=== PATIENT | male | born 1940 | race Caucasian/White ===

== ENCOUNTER 2018-07-10 18:04 | Inpatient (IN) | payer OTHER, MEDICARE ==
[2018-07-10] MEDS: SOD CHLORIDE 0.9% 500 ML IV (18:41)
[2018-07-10 18:43] LABS: ADD MAN DIFF? NO
[2018-07-10 18:44] LABS: ABNORMAL IP MESSAGE 1; BASOPHIL # 0.1 10^3/ul (0.0-0.1); BASOPHILS % 1.1 % (0.0-2.0); HEMATOCRIT 34.9 % (42.0-52.0); LYMPHOCYTES # 0.6 10^3/ul (0.8-2.9); LYMPHOCYTES % 12.8 % (15.0-51.0); MEAN CORPUSCULAR HEMOGLOBIN 35.7 pg (29.0-33.0); MEAN CORPUSCULAR HGB CONC 31.5 g/dl (32.0-37.0); MEAN CORPUSCULAR VOLUME 113.3 fl (82.0-101.0); MEAN PLATELET VOLUME 10.8 fl (7.4-10.4); MONOCYTE # 0.1 10^3/ul (0.3-0.9); MONOCYTES % 2.6 % (0.0-11.0); NEUTROPHIL # 3.9 10^3/ul (1.6-7.5); NEUTROPHILS % 82.6 % (39.0-77.0); PLATELET COUNT 131 10^3/UL (140-415); POSITIVE DIFF @See below; RED BLOOD COUNT 3.08 10^6/ul (4.70-6.10); RED CELL DISTRIBUTION WIDTH 15.5 % (11.5-14.5)
[2018-07-10 18:44] LABS: WHITE BLOOD COUNT 4.7 10^3/ul (4.8-10.8)
[2018-07-10 19:03] LABS: INR 1.75; PROTIME 20.8 Sec (11.9-14.9); PT RATIO 1.6
[2018-07-10 19:04] LABS: PARTIAL THROMBOPLASTIN TIME 39.4 Sec (23.0-35.0)
[2018-07-10 19:08] LABS: ALANINE AMINOTRANSFERASE 12 IU/L (13-69); ALBUMIN 2.5 g/dl (3.3-4.9); ALBUMIN/GLOBULIN RATIO 0.59; ALKALINE PHOSPHATASE 47 IU/L (42-121); ANION GAP 17 (5-13); ASPARTATE AMINO TRANSFERASE 62 IU/L (15-46); BILIRUBIN,INDIRECT 1.8 mg/dl (0-1.1); BILIRUBIN,TOTAL 2.2 mg/dl (0.2-1.3); BLOOD UREA NITROGEN 40 mg/dl (7-20); CALCIUM 8.4 mg/dl (8.4-10.2); CARBON DIOXIDE 17 mmol/L (21-31); CHLORIDE 108 mmol/L (97-110); CREATININE 4.95 mg/dl (0.61-1.24); LIPASE 40 U/L (23-300); POTASSIUM 5.5 mmol/L (3.5-5.1); SODIUM 142 mmol/L (135-144); TOTAL PROTEIN 6.7 g/dl (6.1-8.1)
[2018-07-10 19:34] LABS: GLUCOSE < 20 mg/dl (70-220)
[2018-07-10] MEDS: DEXTROSE 50% 50 ML SYRINGE IV ×2 (19:44→21:21)
[2018-07-10] MEDS: SODIUM CHLORIDE 0.9% 1L BAG IV* (19:45)
[2018-07-10] MEDS: CEFEPIME 2GM/50 ML (PMX) 50 ML IVPB (19:51)
[2018-07-10] MEDS: ALBUMIN HUMAN 25% 100 ML IV ×2 (19:52→20:49)
[2018-07-10 20:25] LABS: ANISOCYTOSIS 3+ (0-0); BAND NEUTROPHILS #M 2.1 10^3/ul (0.0-0.6); BAND NEUTROPHILS % (M) 46 % (0-4); BASOPHILS % (M) 1 % (0-2); EOSINOPHILS % (M) 1 % (0-7); GIANT THROMBO% (M) 4 % (0-0); LYMPHOCYTES #M 0.9 10^3/ul (0.8-2.9); LYMPHOCYTES % (M) 20 % (15-51); METAMYELOCYTES #M 0.5 10^3/ul (0.0-0.0); METAMYELOCYTES %M 12 % (0-0); MONOCYTE #M 0.1 10^3/ul (0.3-0.9); MONOCYTES % (M) 4 % (0-11); PLATELET ESTIMATE DECREASED; POIKILOCYTOSIS 3+ (0-0); SEG NEUT #M 0.9 10^3/ul (1.6-7.5); SEGMENTED NEUTROPHILS (M) % 17 % (39-77); SMUDGE%M 12 % (0-0)
[2018-07-10 20:38] LABS: AADO2 Arterial 56.3 mmHg (7.0-24.0); Allen Test ACCEPTAB; Arterial Base Excess -10.9 mmol/L (-3.0-3); Arterial Blood Gas Oxygen Sat 89.3 mmHG (95.0-100.0); Arterial COHb 0.2 % (0.0-3.0); Arterial Fraction of Oxyhgb 88.6 % (93.0-99.0); Arterial HCO3 13.5 mmol/L (22.0-26.0); Arterial MetHb 0.6 % (0.0-1.5); Arterial pCO2 26.2 mmhg (35-45); MODE ROOM AIR; Site Right Radial
[2018-07-10] MEDS ORDERED: LIDOCAINE 2%/EPI (MDV) 20ML INJ (21:23)
[2018-07-10] MEDS: LIDOCAINE 1%/EPI (MDV) 50 ML INJ SC (21:55)
[2018-07-10] MEDS: DEXTROSE 10% 1,000 ML IV (22:08)
[2018-07-10 22:44] LABS: FLD MN% 14.4 %; FLD PMN% 85.6 %; FLD RBC 4000 /uL
[2018-07-10] MEDS: SOD CHLORIDE 0.9% 250 ML IV (22:44)
[2018-07-10 23:23] LABS: FLD CLARITY CLOUDY; FLD COLOR YELLOW; FLD WBC 10436 /cmm
[2018-07-10 23:23] LABS: FLD TYPE ASCITES
[2018-07-10] MEDS: SOD CHLORIDE 0.9% 1,000 ML IV (23:29)
[2018-07-10] MEDS ORDERED: ALBUTEROL/IPRATROPIUM (NEB) 3 ML AMP NEB (23:30)
[2018-07-10] MEDS ORDERED: DEXTROSE 50% 50 ML SYRINGE IV (23:30)
[2018-07-10] MEDS ORDERED: ACETAMINOPHEN 650 MG SUPP PR (23:30)
[2018-07-11 00:15] LABS: LACTIC ACID 9.5 mmol/L (0.5-2.0)
[2018-07-11] MEDS: ALBUMIN HUMAN 25% 100 ML IV ×5 (01:00→16:59)
[2018-07-11 01:50] LABS: FLUID GLUCOSE < 20 mg/dl; FLUID TYPE ASCITES FLUID
[2018-07-11 01:51] LABS: FLUID TOTAL PROTEIN < 2.0 g/dl
[2018-07-11] MEDS: NORepinephrine 8MG/250 ML (PMX 250 ML IV ×3 (02:02→19:10)
[2018-07-11] MEDS: DEXTROSE 50% 50 ML SYRINGE IV (02:19)
[2018-07-11 08:47] LABS: ADD MAN DIFF? NO
[2018-07-11 08:51] LABS: ABNORMAL IP MESSAGE 1; BASOPHIL # 0.1 10^3/ul (0.0-0.1); BASOPHILS % 0.8 % (0.0-2.0); EOSINOPHILS % 0.5 % (0.0-7.0); HEMATOCRIT 29.9 % (42.0-52.0); HEMOGLOBIN 9.7 g/dl (14.0-18.0); LYMPHOCYTES # 0.5 10^3/ul (0.8-2.9); MEAN CORPUSCULAR HEMOGLOBIN 35.8 pg (29.0-33.0); MEAN CORPUSCULAR HGB CONC 32.4 g/dl (32.0-37.0); MEAN CORPUSCULAR VOLUME 110.3 fl (82.0-101.0); MEAN PLATELET VOLUME 10.7 fl (7.4-10.4); MONOCYTE # 0.3 10^3/ul (0.3-0.9); MONOCYTES % 4.4 % (0.0-11.0); NEUTROPHIL # 5.3 10^3/ul (1.6-7.5); NEUTROPHILS % 83.5 % (39.0-77.0); PLATELET COUNT 113 10^3/UL (140-415); POSITIVE DIFF @See below; RED BLOOD COUNT 2.71 10^6/ul (4.70-6.10); RED CELL DISTRIBUTION WIDTH 15.1 % (11.5-14.5)
[2018-07-11 08:51] LABS: WHITE BLOOD COUNT 6.4 10^3/ul (4.8-10.8)
[2018-07-11 09:18] LABS: ALANINE AMINOTRANSFERASE 16 IU/L (13-69); ALBUMIN 2.3 g/dl (3.3-4.9); ALBUMIN/GLOBULIN RATIO 0.67; ALKALINE PHOSPHATASE 29 IU/L (42-121); ANION GAP 13 (5-13); ASPARTATE AMINO TRANSFERASE 53 IU/L (15-46); BILIRUBIN,INDIRECT 2.1 mg/dl (0-1.1); BILIRUBIN,TOTAL 2.5 mg/dl (0.2-1.3); BLOOD UREA NITROGEN 41 mg/dl (7-20); CALCIUM 7.9 mg/dl (8.4-10.2); CARBON DIOXIDE 17 mmol/L (21-31); CHLORIDE 110 mmol/L (97-110); CREATININE 4.65 mg/dl (0.61-1.24); GLUCOSE 93 mg/dl (70-220); SODIUM 140 mmol/L (135-144); TOTAL PROTEIN 5.7 g/dl (6.1-8.1)
[2018-07-11 09:21] LABS: POTASSIUM 5.6 mmol/L (3.5-5.1)
[2018-07-11 09:47] LABS: LACTIC ACID 7.3 mmol/L (0.5-2.0)
[2018-07-11] MEDS: FAMOTIDINE 20 MG INJ IV (10:25)
[2018-07-11 11:51] LABS: ANISOCYTOSIS 1+ (0-0); BAND NEUTROPHILS #M 3.3 10^3/ul (0.0-0.6); BAND NEUTROPHILS % (M) 53 % (0-4); BURR CELLS 2+ (0-0); LYMPHOCYTES #M 0.4 10^3/ul (0.8-2.9); LYMPHOCYTES % (M) 7 % (15-51); METAMYELOCYTES #M 0.5 10^3/ul (0.0-0.0); METAMYELOCYTES %M 9 % (0-0); MONOCYTE #M 0.7 10^3/ul (0.3-0.9); MONOCYTES % (M) 11 % (0-11); MYELOCYTES #M 0.1 10^3/ul (0.0-0.0); MYELOCYTES % (M) 3 % (0-0); OVALOCYTES 1+ (0-0); PLATELET ESTIMATE DECREASED; POIKILOCYTOSIS 3+ (0-0); SEG NEUT #M 1.3 10^3/ul (1.6-7.5); SEGMENTED NEUTROPHILS (M) % 17 % (39-77); SMUDGE%M 2 % (0-0)
[2018-07-11] MEDS: CEFTRIAXONE 1 GM/50 ML (PMX) 50 ML IVPB ×2 (12:45→20:37)
[2018-07-11] MEDS: DEXTROSE 10% 1,000 ML IV ×2 (14:00→22:26)
[2018-07-11] MEDS ORDERED: ALBUTEROL 0.083% (NEB) 2.5 MG/3 ML AMP HHN (19:00)
[2018-07-11] MEDS: SOD CHLORIDE 0.9% 500 ML IV (19:31)
[2018-07-11] MEDS: SENNA TAB PO (20:37)
[2018-07-11] MEDS ORDERED: GLUCAGON 1 MG INJ IM (22:00)
[2018-07-11] MEDS ORDERED: GLUCOSE GEL 15 GRAM TUBE PO ×2 (22:00)
[2018-07-11] MEDS ORDERED: GLUCOSE GEL 15 GRAM TUBE BUCCAL (22:00)
[2018-07-11] MEDS ORDERED: DEXTROSE 50% 50 ML SYRINGE IV (22:00)
[2018-07-11 23:18] LABS: AMMONIA 25 umol/l (9-30)
[2018-07-11] MEDS: ONDANSETRON 4 MG INJ IV (23:59)
[2018-07-11] MEDS: LACTULOSE 30ML CUP PO (23:59)
[2018-07-12] MEDS: NORepinephrine 8MG/250 ML (PMX 250 ML IV (03:12)
[2018-07-12 05:14] LABS: WHITE BLOOD COUNT 7.4 10^3/ul (4.8-10.8)
[2018-07-12 05:14] LABS: ABNORMAL IP MESSAGE 1; HEMATOCRIT 26.7 % (42.0-52.0); HEMOGLOBIN 8.7 g/dl (14.0-18.0); MEAN CORPUSCULAR HEMOGLOBIN 35.7 pg (29.0-33.0); MEAN CORPUSCULAR HGB CONC 32.6 g/dl (32.0-37.0); MEAN CORPUSCULAR VOLUME 109.4 fl (82.0-101.0); MEAN PLATELET VOLUME 10.7 fl (7.4-10.4); PLATELET COUNT 61 10^3/UL (140-415); POSITIVE DIFF @See below; RED BLOOD COUNT 2.44 10^6/ul (4.70-6.10); RED CELL DISTRIBUTION WIDTH 14.9 % (11.5-14.5)
[2018-07-12 05:19] LABS: ADD MAN DIFF? YES
[2018-07-12 05:34] LABS: INR 1.94; PROTIME 22.6 Sec (11.9-14.9); PT RATIO 1.8
[2018-07-12 05:47] LABS: ALANINE AMINOTRANSFERASE 27 IU/L (13-69); ALBUMIN 2.4 g/dl (3.3-4.9); ALBUMIN/GLOBULIN RATIO 0.85; ALKALINE PHOSPHATASE 26 IU/L (42-121); ANION GAP 14 (5-13); ASPARTATE AMINO TRANSFERASE 33 IU/L (15-46); BILIRUBIN,INDIRECT 1.6 mg/dl (0-1.1); BILIRUBIN,TOTAL 1.9 mg/dl (0.2-1.3); BLOOD UREA NITROGEN 46 mg/dl (7-20); CALCIUM 7.7 mg/dl (8.4-10.2); CARBON DIOXIDE 19 mmol/L (21-31); CHLORIDE 107 mmol/L (97-110); CREATININE 5.17 mg/dl (0.61-1.24); GLUCOSE 105 mg/dl (70-220); POTASSIUM 5.6 mmol/L (3.5-5.1); SODIUM 140 mmol/L (135-144); TOTAL PROTEIN 5.2 g/dl (6.1-8.1)
[2018-07-12] MEDS: LACTULOSE 30ML CUP PO ×4 (05:58→16:54)
[2018-07-12] MEDS: INSULIN ASPART [NOVOLOG] 3 ML PEN SC ×4 (07:35→20:33)
[2018-07-12 07:39] LABS: ADD UMIC YES; UR ASCORBIC ACID NEGATIVE (NEGATIVE); UR BACTERIA MANY /HPF (NONE SEEN); UR BILIRUBIN (Dip) NEGATIVE (NEGATIVE); UR BLOOD (Dip) NEGATIVE (NEGATIVE); UR CLARITY SLIGHTLY CLOUDY (CLEAR); UR COLOR AMBER (YELLOW); UR GLUCOSE (Dip) NEGATIVE (NEGATIVE); UR KETONES (Dip) TRACE mg/dL (NEGATIVE); UR LEUKOCYTE ESTERASE (Dip) 2+ Leu/ul (NEGATIVE); UR NITRITE (Dip) NEGATIVE (NEGATIVE); UR RBC 1 /HPF (0-5); UR SPECIFIC GRAVITY (Dip) 1.019 (1.003-1.030); UR TOTAL PROTEIN (Dip) 1+ mg/dl (NEGATIVE); UR UROBILINOGEN (Dip) NEGATIVE (NEGATIVE); UR WBC 7 /HPF (0-5)
[2018-07-12 07:51] LABS: POTASSIUM,URINE RANDOM 62.3 mmol/L (25-125)
[2018-07-12 07:51] LABS: SODIUM,URINE RANDOM 42 mmol/L (30-90)
[2018-07-12] MEDS: FAMOTIDINE 20 MG INJ IV (08:22)
[2018-07-12] MEDS: CEFTRIAXONE 1 GM/50 ML (PMX) 50 ML IVPB ×2 (08:22→20:33)
[2018-07-12 10:30] LABS: ANISOCYTOSIS 3+ (0-0); BAND NEUTROPHILS % (M) 41 % (0-4); BASOPHILS % (M) 1 % (0-2); BURR CELLS 1+ (0-0); EOSINOPHILS % (M) 2 % (0-7); ERYTHROBLAST% (NRBC) (M) 5 % (0-0); LYMPHOCYTES #M 0.8 10^3/ul (0.8-2.9); LYMPHOCYTES % (M) 12 % (15-51); METAMYELOCYTES #M 0.1 10^3/ul (0.0-0.0); METAMYELOCYTES %M 2 % (0-0); MONOCYTE #M 0.5 10^3/ul (0.3-0.9); MONOCYTES % (M) 7 % (0-11); MYELOCYTES #M 0.1 10^3/ul (0.0-0.0); MYELOCYTES % (M) 2 % (0-0); PLATELET ESTIMATE SIG DECREASED; POIKILOCYTOSIS 3+ (0-0); POLYCHROMASIA 3+ (0-0); PROMYELOCYTES % (M) 1 % (0-0); REACTIVE LYMPHOCYTES% (M) 1 % (0-0); SEG NEUT #M 2.7 10^3/ul (1.6-7.5); SEGMENTED NEUTROPHILS (M) % 34 % (39-77); SMUDGE%M 19 % (0-0); TOXIC GRANULATION 1+ (0-0)
[2018-07-12] MEDS ORDERED: ALBUMIN HUMAN 25% 100 ML (11:57)
[2018-07-12] MEDS: DEXTROSE 10% 1,000 ML IV (11:59)
[2018-07-12] MEDS: ALBUMIN HUMAN 25% 100 ML IV ×3 (12:01→20:33)
[2018-07-12 14:48] LABS: ANION GAP 13 (5-13); BLOOD UREA NITROGEN 49 mg/dl (7-20); CALCIUM 7.7 mg/dl (8.4-10.2); CARBON DIOXIDE 19 mmol/L (21-31); CHLORIDE 107 mmol/L (97-110); CREATININE 5.23 mg/dl (0.61-1.24); GLUCOSE 92 mg/dl (70-220); POTASSIUM 5.3 mmol/L (3.5-5.1); SODIUM 139 mmol/L (135-144)
[2018-07-12] MEDS: SENNA TAB PO (20:26)
[2018-07-13] MEDS: NORepinephrine 8MG/250 ML (PMX 250 ML IV ×2 (00:13→15:24)
[2018-07-13] MEDS: DEXTROSE 10% 1,000 ML IV ×3 (04:51→22:12)
[2018-07-13] MEDS: LACTULOSE 30ML CUP PO ×4 (05:35→17:30)
[2018-07-13 05:47] LABS: WHITE BLOOD COUNT 11.9 10^3/ul (4.8-10.8)
[2018-07-13 05:47] LABS: ABNORMAL IP MESSAGE 1; HEMOGLOBIN 8.3 g/dl (14.0-18.0); MEAN CORPUSCULAR HEMOGLOBIN 36.1 pg (29.0-33.0); MEAN CORPUSCULAR HGB CONC 33.2 g/dl (32.0-37.0); MEAN CORPUSCULAR VOLUME 108.7 fl (82.0-101.0); MEAN PLATELET VOLUME 10.9 fl (7.4-10.4); PLATELET COUNT 41 10^3/UL (140-415); POSITIVE DIFF @See below; RED CELL DISTRIBUTION WIDTH 14.9 % (11.5-14.5)
[2018-07-13 06:03] LABS: ADD MAN DIFF? YES
[2018-07-13 06:21] LABS: ANION GAP 12 (5-13); BLOOD UREA NITROGEN 52 mg/dl (7-20); CALCIUM 8.1 mg/dl (8.4-10.2); CARBON DIOXIDE 21 mmol/L (21-31); CHLORIDE 106 mmol/L (97-110); GLUCOSE 60 mg/dl (70-220); MAGNESIUM 1.7 mg/dl (1.7-2.5); POTASSIUM 5.1 mmol/L (3.5-5.1); SODIUM 139 mmol/L (135-144)
[2018-07-13 06:49] LABS: ANISOCYTOSIS 2+ (0-0); BURR CELLS 1+ (0-0); EOSINOPHILS % (M) 2 % (0-7); LYMPHOCYTES #M 0.2 10^3/ul (0.8-2.9); LYMPHOCYTES % (M) 2 % (15-51); MONOCYTE #M 0.9 10^3/ul (0.3-0.9); MONOCYTES % (M) 8 % (0-11); PLATELET ESTIMATE DECREASED; POIKILOCYTOSIS 1+ (0-0); SEGMENTED NEUTROPHILS (M) % 88 % (39-77); SMUDGE%M 4 % (0-0)
[2018-07-13] MEDS: INSULIN ASPART [NOVOLOG] 3 ML PEN SC ×4 (07:35→20:44)
[2018-07-13] MEDS: FAMOTIDINE 20 MG INJ IV (08:07)
[2018-07-13] MEDS: DEXTROSE 50% 50 ML SYRINGE IV (08:07)
[2018-07-13] MEDS: CEFTRIAXONE 1 GM/50 ML (PMX) 50 ML IVPB (08:07)
[2018-07-13 09:18] LABS: CHOLESTEROL < 50 mg/dl (100-200)
[2018-07-13 09:18] LABS: HDL CHOLESTEROL 8 mg/dl (31-75); TRIGLYCERIDES 60 mg/dl (0-149)
[2018-07-13 09:22] LABS: HEMOGLOBIN A1C 4.8 % (0-5.9)
[2018-07-13] MEDS: ALBUMIN HUMAN 25% 100 ML IV ×2 (10:19→17:25)
[2018-07-13] MEDS: SENNA TAB PO (20:31)
[2018-07-13 21:04] LABS: HEPATITIS B SURFACE ANTIGEN NEGATIVE (NEGATIVE)
[2018-07-13 21:23] LABS: HEPATITIS B SURFACE ANTIBODY NEGATIVE (NEGATIVE)
[2018-07-13] MEDS: HEPARIN 1000 UNITS/ML 10 ML INJ CATHETER (23:50)
[2018-07-14] MEDS: CEFTRIAXONE 1 GM/50 ML (PMX) 50 ML IVPB ×2 (01:20→08:30)
[2018-07-14] MEDS: ALBUMIN HUMAN 25% 100 ML IV (01:26)
[2018-07-14 05:16] LABS: ABNORMAL IP MESSAGE 1; HEMATOCRIT 25.7 % (42.0-52.0); HEMOGLOBIN 8.2 g/dl (14.0-18.0); MEAN CORPUSCULAR HEMOGLOBIN 34.6 pg (29.0-33.0); MEAN CORPUSCULAR HGB CONC 31.9 g/dl (32.0-37.0); MEAN CORPUSCULAR VOLUME 108.4 fl (82.0-101.0); MEAN PLATELET VOLUME 11.5 fl (7.4-10.4); PLATELET COUNT 32 10^3/UL (140-415); POSITIVE DIFF @See below; RED BLOOD COUNT 2.37 10^6/ul (4.70-6.10)
[2018-07-14 05:16] LABS: WHITE BLOOD COUNT 12.2 10^3/ul (4.8-10.8)
[2018-07-14 05:17] LABS: ADD MAN DIFF? YES
[2018-07-14] MEDS: NORepinephrine 8MG/250 ML (PMX 250 ML IV (05:33)
[2018-07-14] MEDS: DEXTROSE 10% 1,000 ML IV ×2 (05:36→21:01)
[2018-07-14 05:40] LABS: INR 2.02; PROTIME 23.3 Sec (11.9-14.9); PT RATIO 1.8
[2018-07-14 05:41] LABS: PARTIAL THROMBOPLASTIN TIME 44.9 Sec (23.0-35.0)
[2018-07-14 05:42] LABS: ALANINE AMINOTRANSFERASE 40 IU/L (13-69); ALBUMIN/GLOBULIN RATIO 1.11; ALKALINE PHOSPHATASE 48 IU/L (42-121); ANION GAP 16 (5-13); ASPARTATE AMINO TRANSFERASE 69 IU/L (15-46); BILIRUBIN,INDIRECT 2.4 mg/dl (0-1.1); BILIRUBIN,TOTAL 4.6 mg/dl (0.2-1.3); BLOOD UREA NITROGEN 43 mg/dl (7-20); CALCIUM 8.4 mg/dl (8.4-10.2); CARBON DIOXIDE 20 mmol/L (21-31); CHLORIDE 102 mmol/L (97-110); CREATININE 4.78 mg/dl (0.61-1.24); GLUCOSE 113 mg/dl (70-220); POTASSIUM 4.8 mmol/L (3.5-5.1); SODIUM 138 mmol/L (135-144); TOTAL PROTEIN 5.7 g/dl (6.1-8.1)
[2018-07-14 05:45] LABS: AMMONIA < 9 umol/l (9-30)
[2018-07-14 05:46] LABS: PHOSPHORUS 2.7 mg/dl (2.5-4.9)
[2018-07-14 05:46] LABS: MAGNESIUM 1.7 mg/dl (1.7-2.5)
[2018-07-14 05:48] LABS: LACTIC ACID 5.4 mmol/L (0.5-2.0)
[2018-07-14] MEDS: LACTULOSE 30ML CUP PO ×4 (06:00→16:52)
[2018-07-14 07:27] LABS: ANISOCYTOSIS 3+ (0-0); BAND NEUTROPHILS #M 1.3 10^3/ul (0.0-0.6); BAND NEUTROPHILS % (M) 11 % (0-4); EOSINOPHILS % (M) 3 % (0-7); LYMPHOCYTES #M 0.3 10^3/ul (0.8-2.9); LYMPHOCYTES % (M) 3 % (15-51); MONOCYTE #M 1.2 10^3/ul (0.3-0.9); MONOCYTES % (M) 10 % (0-11); MYELOCYTES #M 0.1 10^3/ul (0.0-0.0); MYELOCYTES % (M) 1 % (0-0); PLATELET ESTIMATE SIG DECREASED; PROMYELOCYTES #M 0.1 10^3/ul (0-0); PROMYELOCYTES % (M) 1 % (0-0); SEG NEUT #M 8.8 10^3/ul (1.6-7.5); SEGMENTED NEUTROPHILS (M) % 71 % (39-77); SMUDGE%M 29 % (0-0); SPHEROCYTES 1+ (0-0)
[2018-07-14] MEDS: INSULIN ASPART [NOVOLOG] 3 ML PEN SC ×4 (07:35→20:30)
[2018-07-14] MEDS: FAMOTIDINE 20 MG INJ IV (08:30)
[2018-07-14] MEDS: CIPROFLOXACIN 400MG/D5W 200 ML IVPB (10:55)
[2018-07-14] MEDS ORDERED: ALBUTEROL/IPRATROPIUM (NEB) 3 ML AMP HHN (12:00)
[2018-07-14] MEDS ORDERED: BISACODYL 10 MG SUPP PR (12:00)
[2018-07-14 12:33] LABS: ADD UMIC YES; UR ASCORBIC ACID NEGATIVE (NEGATIVE); UR BACTERIA MODERATE /HPF (NONE SEEN); UR BILIRUBIN (Dip) NEGATIVE (NEGATIVE); UR BLOOD (Dip) NEGATIVE (NEGATIVE); UR CLARITY SLIGHTLY CLOUDY (CLEAR); UR COLOR AMBER (YELLOW); UR GLUCOSE (Dip) NEGATIVE (NEGATIVE); UR KETONES (Dip) NEGATIVE (NEGATIVE); UR LEUKOCYTE ESTERASE (Dip) 1+ Leu/ul (NEGATIVE); UR NITRITE (Dip) NEGATIVE (NEGATIVE); UR RBC 1 /HPF (0-5); UR SPECIFIC GRAVITY (Dip) 1.019 (1.003-1.030); UR TOTAL PROTEIN (Dip) NEGATIVE (NEGATIVE); UR UROBILINOGEN (Dip) NEGATIVE (NEGATIVE); UR WBC 6 /HPF (0-5)
[2018-07-14] MEDS: HALOPERIDOL 5 MG INJ IV (13:00)
[2018-07-14] MEDS: LORAZEPAM 4 MG/ML VIAL IV ×2 (14:10→20:41)
[2018-07-14] MEDS: HEPARIN 1000 UNITS/ML 10 ML INJ CATHETER (15:31)
[2018-07-14] MEDS: METOCLOPRAMIDE 10 MG INJ IV (17:09)
[2018-07-14] MEDS: SENNA TAB PO (21:29)
[2018-07-15] MEDS: NORepinephrine 8MG/250 ML (PMX 250 ML IV ×2 (01:05→15:39)
[2018-07-15] MEDS: INSULIN ASPART [NOVOLOG] 3 ML PEN SC ×6 (02:00→20:13)
[2018-07-15] MEDS: DEXTROSE 10% 1,000 ML IV ×2 (02:48→09:28)
[2018-07-15] MEDS: LORAZEPAM 4 MG/ML VIAL IV ×5 (02:57→20:06)
[2018-07-15] MEDS: METOCLOPRAMIDE 10 MG INJ IV ×4 (03:43→18:55)
[2018-07-15 05:08] LABS: ABNORMAL IP MESSAGE 1; ADD MAN DIFF? NO; BASOPHILS % 0.2 % (0.0-2.0); EOSINOPHILS # 0.7 10^3/ul (0.0-0.5); EOSINOPHILS % 5.1 % (0.0-7.0); HEMATOCRIT 24.6 % (42.0-52.0); HEMOGLOBIN 8.1 g/dl (14.0-18.0); LYMPHOCYTES # 0.9 10^3/ul (0.8-2.9); LYMPHOCYTES % 6.6 % (15.0-51.0); MEAN CORPUSCULAR HEMOGLOBIN 35.2 pg (29.0-33.0); MEAN CORPUSCULAR HGB CONC 32.9 g/dl (32.0-37.0); MEAN PLATELET VOLUME 12.4 fl (7.4-10.4); MONOCYTE # 1.8 10^3/ul (0.3-0.9); MONOCYTES % 12.7 % (0.0-11.0); NEUTROPHIL # 10.3 10^3/ul (1.6-7.5); NEUTROPHILS % 73.8 % (39.0-77.0); PLATELET COUNT 34 10^3/UL (140-415); POSITIVE DIFF @See below
[2018-07-15 05:08] LABS: WHITE BLOOD COUNT 13.9 10^3/ul (4.8-10.8)
[2018-07-15 05:29] LABS: PHOSPHORUS 2.9 mg/dl (2.5-4.9)
[2018-07-15 05:29] LABS: MAGNESIUM 1.8 mg/dl (1.7-2.5)
[2018-07-15 05:31] LABS: ALANINE AMINOTRANSFERASE 56 IU/L (13-69); ALBUMIN 2.3 g/dl (3.3-4.9); ALBUMIN/GLOBULIN RATIO 0.85; ALKALINE PHOSPHATASE 60 IU/L (42-121); ANION GAP 11 (5-13); ASPARTATE AMINO TRANSFERASE 82 IU/L (15-46); BILIRUBIN,INDIRECT 2.5 mg/dl (0-1.1); BILIRUBIN,TOTAL 5.7 mg/dl (0.2-1.3); BLOOD UREA NITROGEN 39 mg/dl (7-20); CARBON DIOXIDE 22 mmol/L (21-31); CHLORIDE 102 mmol/L (97-110); CREATININE 4.12 mg/dl (0.61-1.24); GLUCOSE 140 mg/dl (70-220); POTASSIUM 4.5 mmol/L (3.5-5.1); SODIUM 135 mmol/L (135-144)
[2018-07-15] MEDS: LACTULOSE 30ML CUP PO ×4 (06:00→18:00)
[2018-07-15] MEDS: FAMOTIDINE 20 MG INJ IV (09:24)
[2018-07-15] MEDS: CIPROFLOXACIN 400MG/D5W 200 ML IVPB (09:30)
[2018-07-15 09:55] LABS: AADO2 Arterial 83.6 mmHg (7.0-24.0); Allen Test ACCEPTAB; Arterial Base Excess -3.1 mmol/L (-3.0-3); Arterial Blood Gas Oxygen Sat 93.1 mmHG (95.0-100.0); Arterial COHb 0.6 % (0.0-3.0); Arterial Fraction of Oxyhgb 92.3 % (93.0-99.0); Arterial HCO3 21.4 mmol/L (22.0-26.0); Arterial MetHb 0.3 % (0.0-1.5); Arterial pCO2 35.9 mmhg (35-45); MODE NASAL CANNULA; Site Right Radial
[2018-07-15] MEDS: METHYLPREDNISOLONE 125 MG INJ IV (10:05)
[2018-07-15] MEDS ORDERED: LORAZEPAM 2 MG INJ IV (11:30)
[2018-07-15] MEDS: HALOPERIDOL 5 MG INJ IV (12:53)
[2018-07-15] MEDS: HEPARIN 1000 UNITS/ML 10 ML INJ CATHETER (14:02)
[2018-07-15] MEDS: ALBUTEROL/IPRATROPIUM (NEB) 3 ML AMP HHN ×2 (16:00→19:23)
[2018-07-15] MEDS: SENNA TAB PO (20:28)
[2018-07-16] MEDS: METOCLOPRAMIDE 10 MG INJ IV ×4 (00:47→17:36)
[2018-07-16] MEDS: LORAZEPAM 4 MG/ML VIAL IV ×4 (01:22→18:25)
[2018-07-16] MEDS: INSULIN ASPART [NOVOLOG] 3 ML PEN SC ×6 (01:33→20:02)
[2018-07-16] MEDS: HALOPERIDOL 5 MG INJ IM (03:24)
[2018-07-16 05:09] LABS: ABNORMAL IP MESSAGE 1; ADD MAN DIFF? NO; BASOPHILS % 0.2 % (0.0-2.0); HEMATOCRIT 24.5 % (42.0-52.0); HEMOGLOBIN 8.1 g/dl (14.0-18.0); LYMPHOCYTES # 0.6 10^3/ul (0.8-2.9); LYMPHOCYTES % 5.7 % (15.0-51.0); MEAN CORPUSCULAR HEMOGLOBIN 35.4 pg (29.0-33.0); MEAN CORPUSCULAR HGB CONC 33.1 g/dl (32.0-37.0); MEAN PLATELET VOLUME 12.1 fl (7.4-10.4); MONOCYTES % 10.1 % (0.0-11.0); NEUTROPHIL # 7.9 10^3/ul (1.6-7.5); NEUTROPHILS % 82.3 % (39.0-77.0); PLATELET COUNT 33 10^3/UL (140-415); POSITIVE DIFF @See below; RED BLOOD COUNT 2.29 10^6/ul (4.70-6.10); RED CELL DISTRIBUTION WIDTH 14.8 % (11.5-14.5)
[2018-07-16 05:09] LABS: WHITE BLOOD COUNT 9.6 10^3/ul (4.8-10.8)
[2018-07-16] MEDS: LACTULOSE 30ML CUP PO ×4 (05:12→17:37)
[2018-07-16 05:28] LABS: AMMONIA 19 umol/l (9-30)
[2018-07-16 05:31] LABS: PHOSPHORUS 3.8 mg/dl (2.5-4.9)
[2018-07-16 05:31] LABS: MAGNESIUM 1.8 mg/dl (1.7-2.5)
[2018-07-16 05:35] LABS: ALANINE AMINOTRANSFERASE 53 IU/L (13-69); ALBUMIN 2.2 g/dl (3.3-4.9); ALBUMIN/GLOBULIN RATIO 0.78; ALKALINE PHOSPHATASE 51 IU/L (42-121); ANION GAP 13 (5-13); ASPARTATE AMINO TRANSFERASE 74 IU/L (15-46); BILIRUBIN,TOTAL 7.2 mg/dl (0.2-1.3); BLOOD UREA NITROGEN 30 mg/dl (7-20); CALCIUM 8.7 mg/dl (8.4-10.2); CARBON DIOXIDE 18 mmol/L (21-31); CHLORIDE 103 mmol/L (97-110); CREATININE 3.32 mg/dl (0.61-1.24); GLUCOSE 148 mg/dl (70-220); POTASSIUM 4.8 mmol/L (3.5-5.1); SODIUM 134 mmol/L (135-144)
[2018-07-16 05:36] LABS: LACTIC ACID 7.4 mmol/L (0.5-2.0)
[2018-07-16] MEDS: ALBUMIN HUMAN 25% 100 ML IV (06:19)
[2018-07-16] MEDS: NORepinephrine 8MG/250 ML (PMX 250 ML IV ×2 (06:20→08:35)
[2018-07-16] MEDS: ALBUTEROL/IPRATROPIUM (NEB) 3 ML AMP HHN ×3 (07:46→20:07)
[2018-07-16] MEDS ORDERED: AZTREONAM 1 GM in SOD CHLORIDE 0.9% 100 ML IVPB (09:00)
[2018-07-16] MEDS: FAMOTIDINE 20 MG INJ IV (09:19)
[2018-07-16] MEDS: AZTREONAM 0.5 GM in SOD CHLORIDE 0.9% 50 ML IV ×2 (09:25→20:01)
[2018-07-16] MEDS: DEXTROSE 10% 1,000 ML IV (11:55)
[2018-07-16 12:40] LABS: LACTIC ACID 5.8 mmol/L (0.5-2.0)
[2018-07-16 18:24] LABS: ADD UMIC YES; UR ASCORBIC ACID NEGATIVE (NEGATIVE); UR BACTERIA FEW /HPF (NONE SEEN); UR BILIRUBIN (Dip) NEGATIVE (NEGATIVE); UR BLOOD (Dip) NEGATIVE (NEGATIVE); UR CLARITY SLIGHTLY CLOUDY (CLEAR); UR COLOR AMBER (YELLOW); UR GLUCOSE (Dip) NEGATIVE (NEGATIVE); UR KETONES (Dip) TRACE mg/dL (NEGATIVE); UR LEUKOCYTE ESTERASE (Dip) 2+ Leu/ul (NEGATIVE); UR NITRITE (Dip) NEGATIVE (NEGATIVE); UR RBC 0 /HPF (0-5); UR SPECIFIC GRAVITY (Dip) 1.023 (1.003-1.030); UR SQUAMOUS EPITHELIAL CELL FEW /HPF (FEW); UR TOTAL PROTEIN (Dip) 1+ mg/dl (NEGATIVE); UR UROBILINOGEN (Dip) NEGATIVE (NEGATIVE); UR WBC 2 /HPF (0-5)
[2018-07-16 18:38] LABS: CREATININE,URINE RANDOM 182.64 mg/dl (20-370)
[2018-07-16 18:51] LABS: SODIUM,URINE RANDOM < 13 mmol/L (30-90)
[2018-07-16] MEDS: SENNA TAB PO (21:00)
[2018-07-17] MEDS: INSULIN ASPART [NOVOLOG] 3 ML PEN SC ×6 (01:00→21:00)
[2018-07-17] MEDS: METOCLOPRAMIDE 10 MG INJ IV ×4 (01:08→17:18)
[2018-07-17] MEDS: LORAZEPAM 4 MG/ML VIAL IV ×2 (02:30→05:01)
[2018-07-17 05:22] LABS: ADD MAN DIFF? NO
[2018-07-17 05:36] LABS: WHITE BLOOD COUNT 17.3 10^3/ul (4.8-10.8)
[2018-07-17 05:36] LABS: ABNORMAL IP MESSAGE 1; BASOPHILS % 0.2 % (0.0-2.0); HEMATOCRIT 24.1 % (42.0-52.0); HEMOGLOBIN 8.3 g/dl (14.0-18.0); LYMPHOCYTES # 0.7 10^3/ul (0.8-2.9); LYMPHOCYTES % 4.1 % (15.0-51.0); MEAN CORPUSCULAR HEMOGLOBIN 36.1 pg (29.0-33.0); MEAN CORPUSCULAR HGB CONC 34.4 g/dl (32.0-37.0); MEAN CORPUSCULAR VOLUME 104.8 fl (82.0-101.0); MEAN PLATELET VOLUME 12.8 fl (7.4-10.4); MONOCYTE # 1.4 10^3/ul (0.3-0.9); MONOCYTES % 8.2 % (0.0-11.0); NEUTROPHIL # 14.9 10^3/ul (1.6-7.5); NEUTROPHILS % 86.1 % (39.0-77.0); PLATELET COUNT 47 10^3/UL (140-415); POSITIVE DIFF @See below; RED CELL DISTRIBUTION WIDTH 15.2 % (11.5-14.5)
[2018-07-17 05:48] LABS: INR 2.45; PARTIAL THROMBOPLASTIN TIME 41.9 Sec (23.0-35.0); PROTIME 27.2 Sec (11.9-14.9); PT RATIO 2.1
[2018-07-17 05:52] LABS: PHOSPHORUS 5.1 mg/dl (2.5-4.9)
[2018-07-17 05:52] LABS: MAGNESIUM 2.1 mg/dl (1.7-2.5)
[2018-07-17 05:55] LABS: ALANINE AMINOTRANSFERASE 70 IU/L (13-69); ALBUMIN 2.5 g/dl (3.3-4.9); ALBUMIN/GLOBULIN RATIO 0.89; ALKALINE PHOSPHATASE 54 IU/L (42-121); ANION GAP 14 (5-13); ASPARTATE AMINO TRANSFERASE 87 IU/L (15-46); BILIRUBIN,INDIRECT 2.4 mg/dl (0-1.1); BLOOD UREA NITROGEN 43 mg/dl (7-20); CARBON DIOXIDE 21 mmol/L (21-31); CHLORIDE 101 mmol/L (97-110); GLUCOSE 94 mg/dl (70-220); SODIUM 136 mmol/L (135-144); TOTAL PROTEIN 5.3 g/dl (6.1-8.1)
[2018-07-17] MEDS: LACTULOSE 30ML CUP PO ×4 (06:00→17:07)
[2018-07-17] MEDS: ALBUTEROL/IPRATROPIUM (NEB) 3 ML AMP HHN ×3 (08:52→19:49)
[2018-07-17] MEDS: FAMOTIDINE 20 MG INJ IV (09:02)
[2018-07-17] MEDS: AZTREONAM 0.5 GM in SOD CHLORIDE 0.9% 50 ML IV ×2 (09:02→21:07)
[2018-07-17 15:26] LABS: PROCALCITONIN 6.45 ng/mL (<0.10)
[2018-07-17] MEDS: NORepinephrine 8MG/250 ML (PMX 250 ML IV (18:36)
[2018-07-17] MEDS: SENNA TAB PO ×2 (21:00→21:07)
[2018-07-18] MEDS: METOCLOPRAMIDE 10 MG INJ IV ×3 (00:50→13:11)
[2018-07-18] MEDS: INSULIN ASPART [NOVOLOG] 3 ML PEN SC ×4 (00:54→13:00)
[2018-07-18] MEDS: LACTULOSE 30ML CUP PO ×3 (05:02→11:52)
[2018-07-18] MEDS: NORepinephrine 8MG/250 ML (PMX 250 ML IV (06:01)
[2018-07-18] MEDS: ALBUTEROL/IPRATROPIUM (NEB) 3 ML AMP HHN (08:24)
[2018-07-18] MEDS: AZTREONAM 0.5 GM in SOD CHLORIDE 0.9% 50 ML IV (08:56)
[2018-07-18] MEDS: FAMOTIDINE 20 MG INJ IV (08:56)
[2018-07-18] MEDS: LORAZEPAM 4 MG/ML VIAL IV (10:35)
[2018-07-18] MEDS: DEXTROSE 50% 50 ML SYRINGE IV (13:11)
[2018-07-18] MEDS ORDERED: DIMETHICONE STICK TOP (14:30)
[2018-07-18] MEDS ORDERED: ACETAMINOPHEN 650 MG SUPP PR (14:30)
[2018-07-18] MEDS ORDERED: ONDANSETRON 4 MG INJ IV (14:30)
[2018-07-18] MEDS ORDERED: BISACODYL 10 MG SUPP PR (14:30)
[2018-07-18] MEDS ORDERED: LORAZEPAM 4 MG/ML VIAL IV (14:30)
[2018-07-18] MEDS ORDERED: ARTIFICIAL TEARS 15 ML OPH BOTH EYES (14:30)
[2018-07-18] MEDS: morphine (DRIP) 100 MG/100 ML 100 ML IV (15:02)
[2018-07-18] MEDS: ATROPINE 1% 5 ML OPH SL (23:13)
[2018-07-19] MEDS: ALBUTEROL/IPRATROPIUM (NEB) 3 ML AMP HHN (02:23)
[2018-07-19] MEDS: morphine (DRIP) 100 MG/100 ML 100 ML IV (05:56)
[2018-07-20 13:06] LABS: CREATININE, RANDOM URINE 174 mg/dL (20-320); MICROALBUMIN 8.1 mg/dL; MICROALBUMIN/CREATININE RATIO 47 (<30)
== END 2018-07-19 10:25 | disposition expired | DRG 871 ==
LOC: ICU 23:36 → MS1 07-18 20:16 → E/R 18:04
PROC: 02H633Z Insertion of Infusion Device into Right Atrium, Percutaneous Approach (ICD-10-PCS; principal; 2018-07-10)
PROC: 0W9G3ZX Drainage of Peritoneal Cavity, Percutaneous Approach, Diagnostic (ICD-10-PCS; 2018-07-10)
PROC: 06HT33Z Insertion of Infusion Device into Right Foot Vein, Percutaneous Approach (ICD-10-PCS; 2018-07-13)
PROC: 5A1D70Z Performance of Urinary Filtration, Intermittent, Less than 6 Hours Per Day (ICD-10-PCS; 2018-07-13)
DX: A41.9 Sepsis, unspecified organism (principal); R65.21 Severe sepsis with septic shock; G92 Toxic encephalopathy; K65.2 Spontaneous bacterial peritonitis; N17.0 Acute kidney failure with tubular necrosis; J96.01 Acute respiratory failure with hypoxia; D68.4 Acquired coagulation factor deficiency; D61.818 Other pancytopenia; E87.2 Acidosis; K56.7 Ileus, unspecified; B96.20 Unspecified Escherichia coli [E. coli] as the cause of diseases classified elsewhere; K70.31 Alcoholic cirrhosis of liver with ascites; K59.00 Constipation, unspecified; R62.51 Failure to thrive (child); E87.5 Hyperkalemia; I12.9 Hypertensive chronic kidney disease with stage 1 through stage 4 chronic kidney disease, or unspecified chronic kidney disease; N18.9 Chronic kidney disease, unspecified; Z51.5 Encounter for palliative care; E11.649 Type 2 diabetes mellitus with hypoglycemia without coma; E11.22 Type 2 diabetes mellitus with diabetic chronic kidney disease; F10.11 Alcohol abuse, in remission; K72.90 Hepatic failure, unspecified without coma; R60.1 Generalized edema
CPT/HCPCS: 36415; 36600; 71045; 74018; 76705; 76775; 76937; 80048; 80053; 80061; 81001; 81003; 82043; 82140; 82436; 82533; 82803; 82945; 82962; 83036; 83605; 83690; 83735; 84100; 84133; 84145; 84155; 84157; 84300; 84443; 84484; 85025; 85610; 85730; 86706; 86850; 86900; 86901; 87040; 87070; 87075; 87081; 87086; 87102; 87340; 89051; 90935; 93005; 94640; 96374; 96375; 96376; 99291-25